=== PATIENT | female | born 1990 | race American Indian/Alaskan Native ===

== ENCOUNTER 2018-10-05 19:49 | Emergency (ER) | payer BC ==
[2018-10-05 20:02] VITALS: BP 116/75
--- NOTE | 2018-10-05 20:05 | Emergency Department Report ---
Blank Doc - Documentation Documentation: 27 y/o female comes in for FB in vaginal. She reports that she has a tampons stuck inside for 2 hours.
[2018-10-06 02:01] LABS: Bilirubin,Urine NEG (Negative); Blood,Urine NEG (Negative); Color,Urine Yellow (Yellow); Mucus,Urine FEW /HPF; Urobilinogen,Urine < 2.0 mg/dL (<2.0)
== END 2018-10-06 00:43 | disposition left against medical advice (07) ==
LOC: ED 19:49
DX: T19.2XXA Foreign body in vulva and vagina, initial encounter (principal); Z53.21 Procedure and treatment not carried out due to patient leaving prior to being seen by health care provider; X58.XXXA Exposure to other specified factors, initial encounter; Y93.89 Activity, other specified; Y92.89 Other specified places as the place of occurrence of the external cause; Y99.8 Other external cause status
CPT/HCPCS: 81001

== ENCOUNTER 2019-01-13 15:43 | Emergency (ER) | payer BC ==
[2019-01-13 16:10] VITALS: BP 114/81
--- NOTE | 2019-01-13 16:11 | Event Note ---
ED Screening Note Date of service: 01/13/19 Time: 16:08 ED Screening Note: 28 y/o female comes in for vaginal discharge times 2 weeks. This initial assessment/diagnostic orders/clinical plan/treatment(s) is/are subject to change based on patients health status, clinical progression and re-assessment by fellow clinical providers in the ED. Further treatment and workup at subsequent clinical providers discretion. Patient/guardian urged not to elope from the ED as their condition may be serious if not clinically assessed and managed. Initial orders include:
== END 2019-01-13 17:16 | disposition left against medical advice (07) ==
LOC: ED 15:43
DX: R51 Headache (principal); Z53.21 Procedure and treatment not carried out due to patient leaving prior to being seen by health care provider